=== PATIENT | male | born 1985 | race Caucasian/White ===

== ENCOUNTER 2023-08-30 18:57 | Emergency (ER) | payer OTHER ==
[~2023-08-30] VITALS: Ht 175.3 cm; Wt 93.0 kg
[~2023-08-30 18:57] MED LIST: ACID REDUCER PO; AMOXICILLIN500 MG PO; ATIVAN0.5 MG PO; AUGMENTIN875TAB PO; CIPROFLOXACN500 MG PO; CLARITIN10 M1 PO; FLONASE NASAL50 MCG; HEARTBURN PO; MEDDOSEPAK PO; TOBRAMYCIN0.3 % OD; ZOFRAN4 MG/TAB PO
[2023-08-30 19:14] VITALS: BP 119/75
[2023-08-30] MEDS ORDERED: ONDANSETRON 4 MG/TAB ODT SL ONE (19:20)
[2023-08-30] MEDS ORDERED: ACETAMINOPHEN 500 MG TAB PO ONE (19:20)
[2023-08-30] MEDS ORDERED: MELOXICAM XX (19:21)
[2023-08-30 19:31] VITALS: BP 113/71
[2023-08-30 20:00] VITALS: BP 111/71
[2023-08-30] MEDS ORDERED: ZOFRAN4 MG/TAB PO (20:08)
[2023-08-30 20:23] VITALS: BP 111/71
== END 2023-08-30 20:37 | disposition home or self-care (01) | DRG 866 ==
LOC: ED 18:57
DX: B34.9 Viral infection, unspecified (principal); F17.200 Nicotine dependence, unspecified, uncomplicated; Z20.822 Contact with and (suspected) exposure to COVID-19

== ENCOUNTER 2023-09-03 03:44 | Observation (INO) | payer OTHER ==
[2023-09-03] VITALS (15 sets, daily range): BP systolic 97–141; BP diastolic 51–76
[~2023-09-03] VITALS: Ht 175.3 cm; Wt 92.6 kg
[~2023-09-03 03:44] MED LIST changes: +MELOXICAM XX
[2023-09-03] MEDS ORDERED: SODIUM CHLORIDE 0.9% 1,000 ML IV STA (04:09)
[2023-09-03] MEDS ORDERED: KETOROLAC TROMETHAMINE 30 MG/ML SDV IV ONE (04:10)
[2023-09-03] MEDS ORDERED: DIATRIZOATE MEGLUMINE & SODIUM 30 ML/BTL BTL PO ONE (04:10)
[2023-09-03] MEDS ORDERED: DICYCLOMINE HCL 20 MG/2 ML VIAL IM ONE (04:10)
[2023-09-03] MEDS ORDERED: ACETAMINOPHEN 500 MG TAB PO ONE (04:10)
[2023-09-03] MEDS ORDERED: PROMETHAZINE HCL 25 MG/ML AMP IV ONE (04:10)
[2023-09-03 04:36] LABS: BASO% 1.1 % (0-3); HEMATOCRIT 42.4 % (39.0-50.0); HEMOGLOBIN 14.4 g/dl (14.0-18.0); IMMATURE GRANULOCYTES 0.4 % (0.0-5.0); LYMPH% 30.3 % (15-41); MEAN CELL VOLUME 87.4 fL CALC (80.0-100.0); MEAN CORPUSCULAR HGB 29.7 pG CALC (26.0-32.0); MONO% 8.9 % (2-13); NEUT# 1.61 thou/uL (1.82-7.42); NEUT% 59.3 % (42-76); RED BLOOD COUNT 4.85 mill/uL (4.70-6.10); RED CELL DISTRI WIDTH 12.3 % (11.5-15.5)
[2023-09-03 04:48] LABS: ALBUMIN 3.9 g/dL (3.2-5.0); BILIRUBIN, TOTAL 1.9 mg/dL (0.2-1.3); TOTAL PROTEIN 6.9 g/dL (6.3-8.2)
[2023-09-03 04:58] LABS: URINE BLOOD DIPSTICK Negative (NEGATIVE); URINE COLOR Yellow; URINE GLUCOSE - DIPSTICK Negative (NEGATIVE); URINE KETONE 15 mg/dL (NEGATIVE); URINE LEUK ESTERASE Negative (NEGATIVE); URINE NITRITE - DIPSTICK Negative (Negative); URINE PH 8.5 (4.5-8.0); URINE PROTEIN - DIPSTICK 30 mg/dL (NEG-TRACE); URINE SPECIFIC GRAVITY 1.015
[2023-09-03 05:06] LABS: URINE RBC 0-2 RBC/hpf (0-5); URINE SQUAMOUS EPITHELIAL CELL FEW EPI/hpf (0-FEW); URINE WBC 0-2 WBC/hpf (0-5)
[2023-09-03] MEDS ORDERED: MORPHINE SULFATE 4 MG/ML VIAL IV ONE (07:10)
[2023-09-03] MEDS ORDERED: PIPERACILLIN Sodium-Tazobactam 3.375 GM in SODIUM CHLORIDE 0.9% 100 ML IV ONE (07:10)
[2023-09-03] MEDS ORDERED: SODIUM CHLORIDE 0.9% 1,000 ML IV ONE ×2 (07:10→07:15)
[2023-09-03] MEDS ORDERED: ONDANSETRON HCl 4 MG/2 ML SDV IV ONE (07:15)
[2023-09-03] MEDS ORDERED: cefTRIAXone SODIUM 2 GM in SODIUM CHLORIDE 0.9% 100 ML IV ONE (12:05)
[2023-09-03] MEDS ORDERED: DOXYCYCLINE HYCLATE 100 MG in SODIUM CHLORIDE 0.9% 100 ML IV ONE (12:05)
[2023-09-03] MEDS ORDERED: ONDANSETRON HCl 4 MG/2 ML SDV IV PRN (12:20)
[2023-09-03] MEDS ORDERED: MAGNESIUM HYDROXIDE 30 ML UDC PO PRN (12:20)
[2023-09-03] MEDS ORDERED: ACETAMINOPHEN 325 MG/TAB PO PRN (12:20)
[2023-09-03] MEDS ORDERED: SODIUM CHLORIDE 0.9% 1,000 ML IV PRN (12:20)
[2023-09-03] MEDS ORDERED: KETOROLAC TROMETHAMINE 30 MG/ML SDV IV PRN (13:00)
[2023-09-03] MEDS ORDERED: ENOXAPARIN SODIUM 40 MG/0.4 ML SYR SC SCH (21:00)
[2023-09-04] VITALS (9 sets, daily range): BP systolic 110–124; BP diastolic 52–86
[2023-09-04] MEDS ORDERED: DOXYCYCLINE HYCLATE 100 MG in SODIUM CHLORIDE 0.9% 100 ML IV SCH (01:00)
[2023-09-04 06:03] LABS: HEMATOCRIT 42.2 % (39.0-50.0); HEMOGLOBIN 14.3 g/dl (14.0-18.0); IMMATURE GRANULOCYTES 0.8 % (0.0-5.0); LYMPH% 31.2 % (15-41); MEAN CELL VOLUME 87.9 fL CALC (80.0-100.0); MEAN CORPUSCULAR HGB 29.8 pG CALC (26.0-32.0); MEAN CORPUSCULAR HGB CONC 33.9 g/dL CAL (32.0-36.0); MONO% 8.3 % (2-13); NEUT# 2.89 thou/uL (1.82-7.42); NEUT% 58.7 % (42-76); RED BLOOD COUNT 4.8 mill/uL (4.70-6.10); RED CELL DISTRI WIDTH 12.5 % (11.5-15.5)
[2023-09-04 06:34] LABS: ALBUMIN 3.3 g/dL (3.2-5.0); CREATININE 0.7 mg/dL (0.7-1.3); MAGNESIUM 1.8 mg/dL (1.6-2.3); POTASSIUM 3.7 mmol/l (3.5-5.1); TOTAL PROTEIN 5.8 g/dL (6.3-8.2)
[2023-09-04 06:35] LABS: BILIRUBIN, TOTAL 1.1 mg/dL (0.2-1.3)
[2023-09-04] MEDS ORDERED: cefTRIAXone SODIUM 2 GM in SODIUM CHLORIDE 0.9% 100 ML IV SCH (12:30)
[2023-09-05] VITALS: BP 112/67
[2023-09-05 05:00] VITALS: BP 112/67
[2023-09-05 05:39] LABS: HEMATOCRIT 42.1 % (39.0-50.0); HEMOGLOBIN 14.1 g/dl (14.0-18.0); IMMATURE GRANULOCYTES 1.4 % (0.0-5.0); LYMPH% 38.7 % (15-41); MEAN CELL VOLUME 89.6 fL CALC (80.0-100.0); MEAN CORPUSCULAR HGB CONC 33.5 g/dL CAL (32.0-36.0); MONO% 8.5 % (2-13); NEUT# 2.48 thou/uL (1.82-7.42); NEUT% 50.4 % (42-76); RED BLOOD COUNT 4.7 mill/uL (4.70-6.10); RED CELL DISTRI WIDTH 12.6 % (11.5-15.5)
[2023-09-05 05:45] LABS: ALBUMIN 3.6 g/dL (3.2-5.0); BILIRUBIN, TOTAL 0.9 mg/dL (0.2-1.3); CREATININE 0.8 mg/dL (0.7-1.3); MAGNESIUM 1.9 mg/dL (1.6-2.3); POTASSIUM 4.1 mmol/l (3.5-5.1); TOTAL PROTEIN 6.3 g/dL (6.3-8.2)
[2023-09-05 06:36] VITALS: BP 117/77
[2023-09-05 10:31] VITALS: BP 118/85
== END 2023-09-05 12:30 | disposition home or self-care (01) | DRG 872 ==
LOC: ED 03:44 → ED-I 11:57 → ED 12:09 → MS2 12:10
PROVIDERS: Family Medicine; Nurse Practitioner Family; ADMIT Internal Medicine; ATTEND Internal Medicine
DX: A41.9 Sepsis, unspecified organism (principal); K52.9 Noninfective gastroenteritis and colitis, unspecified; E80.6 Other disorders of bilirubin metabolism; R74.01 Elevation of levels of liver transaminase levels; F17.210 Nicotine dependence, cigarettes, uncomplicated
CPT/HCPCS: G0378; J1650; Q9967